=== PATIENT | female | born 1985 | race African-American/Black ===

== ENCOUNTER 2017-12-24 02:41 | Emergency (ER) | payer BC, MEDICAID ==
[~2017-12-24] VITALS: Ht 170.2 cm; Wt 77.2 kg
[2017-12-24 03:13] VITALS: BP 123/68
[2017-12-24] MEDS ORDERED: TDAP [DIPH/PERTUSSIS/TET] 0.5 ML VIAL IM ONE ×2 (03:44→04:00)
== END 2017-12-24 03:56 | disposition home or self-care (01) ==
LOC: ER 02:42
DX: S00.03XA Contusion of scalp, initial encounter (principal); S51.851A Open bite of right forearm, initial encounter; F10.10 Alcohol abuse, uncomplicated; Y90.9 Presence of alcohol in blood, level not specified; Z98.890 Other specified postprocedural states; Y04.1XXA Assault by human bite, initial encounter; Y93.89 Activity, other specified; Y92.89 Other specified places as the place of occurrence of the external cause; Y99.8 Other external cause status
CPT/HCPCS: 90471; 90715; 99283; A4606; Z7610

== ENCOUNTER 2021-04-21 09:38 | Emergency (ER) | payer MEDICAID ==
[~2021-04-21] VITALS: Ht 170.2 cm; Wt 81.6 kg
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
[2021-04-21] MEDS ORDERED: KETOROLAC TROMETHAMINE INJ 30 MG/ML VIAL ONE (10:22)
[2021-04-21] MEDS ORDERED: KETOROLAC TROMETHAMINE INJ 60 MG/2 ML VIAL IM ONE (10:30)
--- NOTE | 2021-04-21 10:32 | NUR ---
Patient discharged to home in stable condition. Written and verbal after care instructions given. Patient verbalizes understanding of instruction.
[2021-04-21 10:33] VITALS: BP 112/76
== END 2021-04-21 10:34 | disposition home or self-care (01) ==
LOC: ER 09:42
DX: T88.1XXA Other complications following immunization, not elsewhere classified, initial encounter (principal); R59.0 Localized enlarged lymph nodes; Z98.890 Other specified postprocedural states
CPT/HCPCS: 96372; 99283; J1885

== ENCOUNTER 2021-09-10 23:05 | Emergency (ER) | payer MEDICAID ==
[~2021-09-10] VITALS: Ht 170.2 cm; Wt 80.3 kg
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
--- NOTE | 2021-09-10 23:47 | NUR ---
URINE COLLECTED AND SENT TO LAB. PT AMBULATORY TO RESTROOM WITH STEADY GAIT.
--- NOTE | 2021-09-11 00:23 | NUR ---
PT TAKEN TO CT VIA [facility]
--- NOTE | 2021-09-11 00:30 | NUR ---
PT RETURNED TO ER BED [address] V[address] [facility]
--- NOTE | 2021-09-11 01:09 | NUR ---
Patient discharged to home in stable condition. Written and verbal after care instructions given. Patient verbalizes understanding of instruction. pt ambulatory with a steady gait
[2021-09-11 01:11] VITALS: BP 127/76
== END 2021-09-11 01:12 | disposition home or self-care (01) ==
LOC: ER 23:17
DX: S39.012A Strain of muscle, fascia and tendon of lower back, initial encounter (principal); M25.552 Pain in left hip; Z98.891 History of uterine scar from previous surgery; Z91.011 Allergy to milk products; V89.2XXA Person injured in unspecified motor-vehicle accident, traffic, initial encounter; Y93.89 Activity, other specified; Y92.89 Other specified places as the place of occurrence of the external cause; Y99.8 Other external cause status
CPT/HCPCS: 72131-TC; 84703-TC